=== PATIENT | female | born 1975 | race Caucasian/White ===

== ENCOUNTER 2019-10-16 15:33 | Emergency (ER) | payer OTHER ==
[~2019-10-16] VITALS: Ht 165.1 cm; Wt 84.8 kg
[2019-10-16] MEDS ORDERED: CLINDAMYCIN HC300 MG PO (16:47)
== END 2019-10-16 17:10 | disposition home or self-care (01) ==
LOC: ED 15:33
DX: L02.415 Cutaneous abscess of right lower limb (principal); L30.9 Dermatitis, unspecified; F17.200 Nicotine dependence, unspecified, uncomplicated; Z88.0 Allergy status to penicillin